=== PATIENT | female | born 1995 | race Caucasian/White ===

== ENCOUNTER → 2017-02-15 | Outpatient (CLI) | payer BC, OTHER ==
--- NOTE | 2017-02-15 15:10 | DIAGNOSTIC IMAGING REPORT ---
MRI THE LEFT HIP NO CONTRAST CLINICAL HISTORY: LT HIP PAIN COMPARISON STUDY: No previous studies for comparison. FINDINGS: Imaging was performed in the coronal, sagittal, and axial planes. There are no areas of marrow edema to indicate occult fracture or bone bruise. There is no evidence of pathologic joint effusion. There is no evidence of pathologic adenopathy. There are no findings to indicate avascular necrosis. There is no evidence of pathologic muscular edema. IMPRESSION: No abnormalities identified. Electronically signed by: Cali Adams M.D. 02/15/2017 3:08 PM Dictated Date/Time: 02/15/2017 3:06 PM
== END | disposition home or self-care (01) ==
LOC: C.MRI 14:02
PROVIDERS: ATTEND Physician Assistant
DX: M25.552 Pain in left hip (principal)